=== PATIENT | male | born 1960 | race Two or more races ===

== ENCOUNTER 2020-07-22 09:32 | Outpatient (REF) | payer BC, SELFPAY | END 2020-07-22 09:33 | disposition home or self-care (01) | LOC: HO.10HDL 09:32 | PROVIDERS: Visit Provider Internal Medicine | DX: Z13.89 Encounter for screening for other disorder (principal) ==

== ENCOUNTER 2020-07-24 10:13 | Outpatient (REF) | payer BC, SELFPAY ==
[2020-07-24 13:32] LABS: MANUAL DIFF FLAG NO
[2020-07-24 13:38] LABS: Basophils Percent Auto 0.4 % (0-2); Eosinophils Absolute Auto 0.2 X10*3/uL (0.0-0.4); Eosinophils Percent Auto 2.9 % (0-4); Hematocrit 44.5 % (42-52); Hemoglobin 14.9 g/dl (14.0-18.0); Imm Gran Abs Auto 0.03 X10*3/uL (0.00-0.03); Imm Gran Pct Auto 0.4 % (0.0-0.4); Lymphocytes Absolute Auto 1.8 X10*3/uL (1.2-4.9); Lymphocytes Percent Auto 25.5 % (20-40); Mean Corpuscular HGB Conc 33.5 g/dl (31.0-36.0); Mean Corpuscular Hemoglobin 32.6 pg (27.0-33.0); Mean Corpuscular Volume 97.4 fL (80-98); Mean Platelet Volume 10.1 fL (9.4-12.4); Monocytes Percent Auto 14.8 % (2-11); Neutrophils Absolute Auto 3.9 X10*3/uL (2.0-8.3); Platelet Count 215 X10*3/uL (160-400); Red Blood Count 4.57 X10*6/uL (4.60-5.80); Red Cell Distribution Width 12.7 % (11.0-16.0); White Blood Count 6.9 X10*3/uL (4.8-10.8)
[2020-07-24 14:09] LABS: Alanine Aminotransferase 65 U/L (0-40); Albumin Level 4.3 g/dL (3.5-5.0); Alkaline Phosphatase 68 U/L (39-117); Anion Gap 13 (12-20); Aspartate Amino Transferase 38 U/L (5-37); Bilirubin Total 0.4 mg/dL (0.0-1.0); Blood Urea Nitrogen 19 mg/dL (9-16); Calcium 8.6 mg/dL (8.4-10.2); Carbon Dioxide 29 mmol/L (22-29); Chloride 102 mmol/L (96-108); Cholesterol 172 mg/dL; Estimated Glomerular Filt Rate > 60; Glucose Fasting 164 mg/dL (60-99); HDL Cholesterol 40 mg/dL; LDL Cholesterol Calculated 96 mg/dl; Potassium 4.7 mmol/l (3.3-5.1); Sodium 139 mmol/L (135-145); Total Protein 7.1 g/dL (6.5-8.0); Triglycerides 183 mg/dL
== END 2020-07-24 10:14 | disposition home or self-care (01) ==
LOC: HO.10HDL 10:13
PROVIDERS: Visit Provider Internal Medicine
DX: E78.5 Hyperlipidemia, unspecified (principal); E11.9 Type 2 diabetes mellitus without complications
CPT/HCPCS: 36415; 80053; 80061; 84153; 85025

== ENCOUNTER 2022-02-16 07:57 | Outpatient (REF) | payer BC, SELFPAY ==
[2022-02-16 10:22] LABS: MANUAL DIFF FLAG NO
[2022-02-16 10:25] LABS: Basophils Percent Auto 0.4 % (0-2); Eosinophils Absolute Auto 0.1 X10*3/uL (0.0-0.4); Eosinophils Percent Auto 1.6 % (0-4); Hemoglobin 15.4 g/dl (14.0-18.0); Imm Gran Abs Auto 0.02 X10*3/uL (0.00-0.03); Imm Gran Pct Auto 0.3 % (0.0-0.4); Lymphocytes Absolute Auto 2.2 X10*3/uL (1.2-4.9); Lymphocytes Percent Auto 29.4 % (20-40); Mean Corpuscular HGB Conc 34.2 g/dl (31.0-36.0); Mean Corpuscular Hemoglobin 31.3 pg (27.0-33.0); Mean Corpuscular Volume 91.5 fL (80.0-98.0); Mean Platelet Volume 10.5 fL (9.4-12.4); Monocytes Absolute Auto 0.9 X10*3/uL (0.1-1.2); Monocytes Percent Auto 11.8 % (2-11); Neutrophils Absolute Auto 4.2 x10*3/uL (2.0-8.3); Neutrophils Percent Auto 56.5 % (45-73); Platelet Count 208 X10*3/uL (160-400); Red Blood Count 4.92 X10*6/uL (4.60-5.80); Red Cell Distribution Width 12.2 % (11.0-16.0); White Blood Count 7.5 X10*3/uL (4.8-10.8)
[2022-02-16 10:52] LABS: Alanine Aminotransferase 54 U/L (0-40); Albumin Level 4.3 g/dL (3.5-5.0); Alkaline Phosphatase 82 U/L (39-117); Anion Gap 13 (12-20); Aspartate Amino Transferase 26 U/L (5-37); Bilirubin Total 0.6 mg/dL (0.0-1.0); Blood Urea Nitrogen 16 mg/dL (9-16); Calcium 9.8 mg/dL (8.4-10.2); Carbon Dioxide 28 mmol/L (22-29); Chloride 99 mmol/L (96-108); Cholesterol 172 mg/dL; Estimated Glomerular Filt Rate > 60; Glucose Fasting 322 mg/dL (60-99); HDL Cholesterol 35 mg/dL; LDL Cholesterol Calculated 99 mg/dl; Potassium 4.8 mmol/L (3.3-5.1); Sodium 135 mmol/L (135-145); Total Protein 7.4 g/dL (6.5-8.0); Triglycerides 192 mg/dL
[2022-02-16 11:17] LABS: Prostate Specific Antigen Scr 0.37 ng/mL (<0.05-4.0)
== END 2022-02-16 07:58 | disposition home or self-care (01) ==
LOC: HO.10HDL 07:57
PROVIDERS: Visit Provider Internal Medicine
DX: Z00.00 Encounter for general adult medical examination without abnormal findings (principal); Z13.0 Encounter for screening for diseases of the blood and blood-forming organs and certain disorders involving the immune mechanism; Z12.5 Encounter for screening for malignant neoplasm of prostate
CPT/HCPCS: 36415; 80053; 80061; 84153; 85025

== ENCOUNTER 2022-02-18 11:00 | Outpatient (REF) | payer BC, SELFPAY ==
[2022-02-18 14:02] LABS: Estimated Average Glucose 269 mg/dL
[2022-02-18 14:25] LABS: Creatinine Urine 47.29 mg/dL; Microalbum/Creatinine Ratio Ur 14.8 ug/mg cr
== END 2022-02-18 11:01 | disposition home or self-care (01) ==
LOC: HO.10HDL 11:00
PROVIDERS: Visit Provider Internal Medicine
DX: E11.69 Type 2 diabetes mellitus with other specified complication (principal); E66.01 Morbid (severe) obesity due to excess calories
CPT/HCPCS: 36415; 82043; 83036

== ENCOUNTER 2022-05-25 09:18 | Outpatient (REF) | payer BC, SELFPAY ==
[2022-05-25 11:39] LABS: Estimated Average Glucose 105 mg/dL; Hemoglobin A1c % 5.3 %
== END 2022-05-25 09:19 | disposition home or self-care (01) ==
LOC: HO.10HDL 09:18
PROVIDERS: Visit Provider Internal Medicine
DX: E11.9 Type 2 diabetes mellitus without complications (principal)
CPT/HCPCS: 36415; 83036

== ENCOUNTER 2022-06-08 09:08 | Outpatient (REF) | payer BC, SELFPAY ==
[2022-06-08 11:17] LABS: Glucose Fasting 77 mg/dL (60-99)
== END 2022-06-08 09:09 | disposition home or self-care (01) ==
LOC: HO.10HDL 09:08
PROVIDERS: Visit Provider Internal Medicine
DX: R73.9 Hyperglycemia, unspecified (principal)
CPT/HCPCS: 36415; 82947

== ENCOUNTER 2022-09-14 09:27 | Outpatient (REF) | payer BC, SELFPAY ==
[2022-09-14 11:11] LABS: Estimated Average Glucose 103 mg/dL; Hemoglobin A1c % 5.2 %
[2022-09-14 11:17] LABS: Glucose Fasting 95 mg/dL (60-99)
== END 2022-09-14 09:28 | disposition home or self-care (01) ==
LOC: HO.10HDL 09:27
PROVIDERS: Visit Provider Internal Medicine
DX: E11.65 Type 2 diabetes mellitus with hyperglycemia (principal)
CPT/HCPCS: 36415; 82947; 83036

== ENCOUNTER 2022-12-08 11:24 | Outpatient (REF) | payer BC, SELFPAY ==
[2022-12-08 13:27] LABS: Glucose Fasting 81 mg/dL (60-99)
[2022-12-08 14:21] LABS: Estimated Average Glucose 100 mg/dL; Hemoglobin A1c % 5.1 %
[2022-12-13 13:23] LABS: Testosterone, Free 46.1 pg/mL (35.0-155.0); Testosterone, Total 408 ng/dL (250-1100)
== END 2022-12-08 11:25 | disposition home or self-care (01) ==
LOC: HO.10HDL 11:24
PROVIDERS: Visit Provider Internal Medicine
DX: E11.65 Type 2 diabetes mellitus with hyperglycemia (principal); R53.83 Other fatigue
CPT/HCPCS: 36415; 82947; 83036; 84402; 84403

== ENCOUNTER 2023-03-15 07:57 | Outpatient (REF) | payer BC, SELFPAY ==
[2023-03-15 10:27] LABS: MANUAL DIFF FLAG NO
[2023-03-15 10:31] LABS: Basophils Percent Auto 0.6 % (0-2); Eosinophils Absolute Auto 0.2 X10*3/uL (0.0-0.4); Hematocrit 42.6 % (42.0-52.0); Hemoglobin 14.5 g/dl (14.0-18.0); Imm Gran Abs Auto 0.01 X10*3/uL (0.00-0.03); Imm Gran Pct Auto 0.2 % (0.0-0.4); Lymphocytes Absolute Auto 1.5 X10*3/uL (1.2-4.9); Mean Platelet Volume 10.3 fL (9.4-12.4); Monocytes Absolute Auto 0.6 X10*3/uL (0.1-1.2); Neutrophils Absolute Auto 2.8 x10*3/uL (2.0-8.3); Neutrophils Percent Auto 54.2 % (45-73); Platelet Count 178 X10*3/uL (160-400); Red Blood Count 4.53 X10*6/uL (4.60-5.80); Red Cell Distribution Width 13.4 % (11.0-16.0); White Blood Count 5.2 X10*3/uL (4.8-10.8)
[2023-03-15 10:51] LABS: Alanine Aminotransferase 18 U/L (0-40); Albumin Level 4.3 g/dL (3.5-5.0); Alkaline Phosphatase 68 U/L (39-117); Anion Gap 12 (12-20); Aspartate Amino Transferase 18 U/L (5-37); Bilirubin Total 0.9 mg/dL (0.0-1.0); Blood Urea Nitrogen 13 mg/dL (9-16); Calcium 9.9 mg/dL (8.4-10.2); Carbon Dioxide 29 mmol/L (22-29); Chloride 108 mmol/L (96-108); Cholesterol 157 mg/dL; Estimated Average Glucose 97 mg/dL; Estimated Glomerular Filt Rate > 60; Glucose Fasting 102 mg/dL (60-99); HDL Cholesterol 52 mg/dL; Hemoglobin A1C 121.2812 umol/L; LDL Cholesterol Calculated 91 mg/dl; Potassium 4.7 mmol/L (3.3-5.1); Sodium 144 mmol/L (135-145); Total Protein 7.1 g/dL (6.5-8.0); Triglycerides 73 mg/dL
[2023-03-15 11:03] LABS: Creatinine Urine 72.42 mg/dL; Microalbumin Urine < 5.0 mg/L
== END 2023-03-15 07:58 | disposition home or self-care (01) ==
LOC: HO.10HDL 07:57
PROVIDERS: Visit Provider Internal Medicine
DX: N28.9 Disorder of kidney and ureter, unspecified (principal); E78.5 Hyperlipidemia, unspecified; E03.9 Hypothyroidism, unspecified; D64.9 Anemia, unspecified; E11.69 Type 2 diabetes mellitus with other specified complication; E66.01 Morbid (severe) obesity due to excess calories; E11.65 Type 2 diabetes mellitus with hyperglycemia
CPT/HCPCS: 36415; 80053; 80061; 82043; 83036; 84443; 85025

== ENCOUNTER 2024-05-01 10:38 | Outpatient (REF) | payer BC, SELFPAY ==
[2024-05-01 12:02] LABS: Glucose Fasting 103 mg/dL (60-99)
[2024-05-01 12:34] LABS: Estimated Average Glucose 103 mg/dL; Hemoglobin A1c % 5.2 % (<6.0)
== END 2024-05-01 10:39 | disposition home or self-care (01) ==
LOC: HO.10HDL 10:38
PROVIDERS: Visit Provider Internal Medicine
DX: R73.9 Hyperglycemia, unspecified (principal)
CPT/HCPCS: 36415; 82947; 83036

== ENCOUNTER 2024-05-03 09:14 | Outpatient (REF) | payer MEDICARE, SELFPAY ==
[2024-05-03 11:03] LABS: MANUAL DIFF FLAG NO
[2024-05-03 11:25] LABS: Basophils Percent Auto 0.4 % (0-2); Eosinophils Absolute Auto 0.1 X10*3/uL (0.0-0.4); Eosinophils Percent Auto 1.6 % (0-4); Hematocrit 43.2 % (42.0-52.0); Hemoglobin 14.8 g/dl (14.0-18.0); Imm Gran Abs Auto 0.02 X10*3/uL (0.00-0.03); Imm Gran Pct Auto 0.4 % (0.0-0.4); Lymphocytes Absolute Auto 1.5 X10*3/uL (1.2-4.9); Lymphocytes Percent Auto 27.1 % (20-40); Mean Corpuscular HGB Conc 34.3 g/dl (31.0-36.0); Mean Corpuscular Hemoglobin 31.8 pg (27.0-33.0); Mean Corpuscular Volume 92.9 fL (80.0-98.0); Mean Platelet Volume 9.6 fL (9.4-12.4); Monocytes Absolute Auto 0.7 X10*3/uL (0.1-1.2); Monocytes Percent Auto 12.1 % (2-11); Neutrophils Absolute Auto 3.3 x10*3/uL (2.0-8.3); Neutrophils Percent Auto 58.4 % (45-73); Platelet Count 191 X10*3/uL (160-400); Red Blood Count 4.65 X10*6/uL (4.60-5.80); Red Cell Distribution Width 12.7 % (11.0-16.0); White Blood Count 5.6 X10*3/uL (4.8-10.8)
[2024-05-03 11:31] LABS: Alanine Aminotransferase 19 U/L (0-40); Albumin Level 4.5 g/dL (3.5-5.0); Alkaline Phosphatase 56 U/L (39-117); Anion Gap 12 (12-20); Aspartate Amino Transferase 19 U/L (5-37); Bilirubin Total 0.5 mg/dL (0.0-1.0); Blood Urea Nitrogen 14 mg/dL (9-16); Calcium 9.6 mg/dL (8.4-10.2); Carbon Dioxide 30 mmol/L (22-29); Chloride 105 mmol/L (96-108); Cholesterol 141 mg/dL (<200); Estimated Glomerular Filt Rate > 60; Glucose Fasting 105 mg/dL (60-99); HDL Cholesterol 44 mg/dL (>40); LDL Cholesterol Calculated 80 mg/dL (<100); Potassium 4.5 mmol/L (3.3-5.1); Sodium 142 mmol/L (135-145); Total Protein 7.4 g/dL (6.5-8.0); Triglycerides 89 mg/dL (<150)
[2024-05-03 11:34] LABS: Estimated Average Glucose 103 mg/dL; Hemoglobin A1c % 5.2 % (<6.0)
[2024-05-03 11:48] LABS: Microalbum/Creatinine Ratio Ur 9.7 ug/mg cr (<30)
[2024-05-03 11:49] LABS: Thyroid Stimulating Hormone 1.29 uIU/mL (0.32-4.0)
== END 2024-05-03 09:15 | disposition home or self-care (01) ==
LOC: HO.10HDL 09:14
PROVIDERS: Visit Provider Internal Medicine
DX: Z13.9 Encounter for screening, unspecified (principal); E11.69 Type 2 diabetes mellitus with other specified complication; E66.01 Morbid (severe) obesity due to excess calories; R73.9 Hyperglycemia, unspecified; Z13.220 Encounter for screening for lipoid disorders; Z13.29 Encounter for screening for other suspected endocrine disorder; Z13.0 Encounter for screening for diseases of the blood and blood-forming organs and certain disorders involving the immune mechanism
CPT/HCPCS: 36415; 80053; 80061; 82043; 82570; 83036; 84443; 85025

== ENCOUNTER 2024-05-04 10:36 | Outpatient (AMB) | payer MEDICARE, SELFPAY ==
--- NOTE | 2024-05-04 10:33 | A.OFFPC_ITS ---
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3% 1 drp ophthalmic (eye) Q4H triamcinolone acetonide 0.1% appl topical zolpidem 10 mg PO BEDTIME PRN 30 days Tobacco use date assessed: 03/16/23 Dental Screening Dental Screen Date: 03/16/23 HPI possible pink eye HPI Details both eyes red and crusty for a few days PFSH Medical History (Updated 06/09/22 @ 15:07 by Maicol Mayorga MD) Hyperlipidemia Gout Surgical History History of herniorrhaphy History of spinal fusion Family History Father Alive and well Mother No problems noted. Brother Hodgkin disease Sister Lupus Other Substance use disorder Social History Housing: Apartment Alcohol intake: current Alcohol intake frequency: a few times a week Alcohol type: wine Patient Tobacco Use Status: Never used Tobacco e-Cigarette/Vaping Use: Never Used Second Hand Smoke Exposure: No service: No Current occupational status: employed Current occupation: [employer] Current occupational exposures/hazards: No Cognitive needs: No Hearing needs: No Vision needs: Yes (glasses) Questionnaire PHQ-9 Over the last 2 weeks, how often have you been bothered by any of the following problems? 1. Little interest or pleasure in doing things: not at all 2. Feeling down, depressed, or hopeless: not at all 3. Trouble falling or staying asleep, or sleeping too much: not at all 4. Feeling tired or having little energy: not at all 5. Poor appetite or overeating: not at all 6. Feeling bad about yourself - or that you are a failure or have let yourself or your family down: not at all 7. Trouble concentrating on things, such as reading the newspaper or watching television: not at all 8. Moving or speaking so slowly that other people could have noticed. Or the opposite - being so fidgety or restless that you have been moving around a lot more than usual: not at all 9. Thoughts that you would be better off or of hurting yourself in some way: not at all Total score: 0 Depression Screening Interpretation: Negative Depression Screening Done: Yes 98143 - PHQ-9 Billing: Yes Source: Developed by Drs. Leighton Stone, Tricia Howell, Kane Diamond and colleagues, with an educational musa from [employer]. Thrive Questionnaire Date Thrive assessed: 05/04/24 I am a: Patient What is your living situation today?: I have a steady place to live Within the past 12 months, did the food you bought not last and you didn't have the money to get more?: Never true Within the past 12 months, did you worry whether your food would run out before you got money to buy more?: Never true Do you have trouble paying for medicines?: No Do you have trouble getting transportation to medical appointments?: No Do you have trouble paying your heating and electricity bill?: No Do you have trouble taking care of your child, family member or friend?: No Do you have trouble with day-to-day activities such as bathing, preparing meals, shopping, managing finances, etc.?: No Are you currently unemployed and looking for a job?: No Are you interested in more education?: No Please select the resources that you would like help with: None Currently or been in a relationship where the following occur: No concerns reported THRIVE Score: 0 AUDIT C Alcohol Use Questionnaire (AUDIT-C) 1. How often do you have a drink containing alcohol?: 2-3 times a week 2. How many drinks containing alcohol do you have on a typical day when you are drinking?: 3 or 4 3. How often do you have six or more drinks on one occasion?: Never Total Score: 4 Score Reviewed/Action Taken: Yes VAN-7 AMB Questionnaire VAN-7 Date VAN - 7 assessed: 05/04/24 Feeling nervous, anxious, or on edge: 0 = Not at all Not being able to stop or control worryin = Not at all Worrying too much about different things: 0 = Not at all Trouble relaxin = Not at all Being so restless that it is hard to sit still: 0 = Not at all Becoming easily annoyed or irritable: 0 = Not at all Feeling afraid as if something awful might happen: 0 = Not at all Total VAN-7 score (0-4 normal; 5-9 mild; 10-14 moderate; 15-21 severe): 0 Source: Developed by Drs. Leighton Stone, Tricia Howell, Kane Diamond and colleagues, with an educational musa from [employer]. VAN-7 Assessment Billing VAN-7 Assessment Tool: VAN-7 Assessment 43145 Review of Systems Const Denies chills, Denies headache(s) and Denies weight loss ENT Denies headache(s) Card Denies chest pain, Denies syncope, Denies irregular heart rhythm and Denies dyspnea Resp Denies chest congestion, Denies cough and Denies dyspnea GI Denies abdominal pain, Denies change in stool character, Denies nausea and Denies vomiting Musc Denies deformity and Denies joint swelling Neuro Denies syncope and Denies headache(s) Physical exam (Primary Care) Tobacco/Smoking Status: Tobacco use Status Tobacco use date assessed 03/16/23 05/04/24 10:36 Patient Tobacco Use Status Never used Tobacco 05/04/24 10:36 e-Cigarette/Vaping Use Never Used 05/04/24 10:36 PHQ-9: PHQ-9 Score PHQ-9: Total score 0 05/04/24 10:36 Depression Screening Interpretation: Negative Thrive Assessment: Date of Thrive Assessment Date Thrive assessed 05/04/24 05/04/24 10:36 Currently or been in a relationship where the following occur: No concerns reported Telehealth Telehealth Telehealth Platform: Telephone Location of provider rendering services: practice address Location of patient: address on file Patient Identification confirmed using: Name, : Yes Telehealth method: video Patient verbally consented to treatment: Yes Patient verbally consented to billing insurance company: Yes Patient informed of any privacy concerns related to visit: Yes Minutes spent on Phone/Video with Pt.: 15 (telephone) Assessment and Plan Assessment & Plan (1) Conjunctivitis: Code(s): H10.9 - Unspecified conjunctivitis Plan: rx sent Medications: New tobramycin 0.3% 1 drp ophthalmic (eye) Q4H 5 mL 0RF Coding Level of Care Code Tele Est Pt Level 3 (99485) Diagnoses Conjunctivitis H10.9 Additional Codes VAN-7 Assessment Billing - VAN-7 Assessment Tool: VAN-7 Assessment 19811 ([id number])
== END 2024-05-04 13:52 | disposition home or self-care (01) ==
LOC: HO.HMGH 10:36
PROVIDERS: PCP Internal Medicine; Visit Provider Internal Medicine
DX: H10.9 Unspecified conjunctivitis (principal)
CPT/HCPCS: 99213

== ENCOUNTER 2024-05-08 13:10 | Outpatient (AMB) | payer MEDICARE, SELFPAY ==
[2024-05-08 13:15] VITALS: BP 138/68; PULSE 57; O2SAT 98; BMI 25.6
--- NOTE | 2024-05-08 13:15 | AM.OFFVISMDC ---
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 Brother Hodgkin disease Sister Lupus Other Substance use disorder Social History Housing: Apartment Alcohol intake: current Alcohol intake frequency: a few times a week Alcohol type: wine Patient Tobacco Use Status: Never used Tobacco e-Cigarette/Vaping Use: Never Used Second Hand Smoke Exposure: No service: No Current occupational status: employed Current occupation: [employer] Current occupational exposures/hazards: No Cognitive needs: No Hearing needs: No Vision needs: Yes (glasses) Questionnaire Medicare Wellness Checkup [age] 65-67 What gender do you identify with?: male During the past 4 weeks, how much have you been bothered by emotional problems such as feeling anxious, depressed, irritable, sad or downhearted, and blue?: slightly During the past 4 weeks, has your physical & emotional health limited your social activities with family, friends, neighbors, or groups?: slightly During the past 4 weeks, how much bodily pain have you generally had?: mild pain During the past 4 weeks, was someone available to help you if you needed & wanted help?: yes, some During the past 4 weeks, what was the hardest physical activity you could do for at least 2 minutes?: moderate Can you get to places out of walking distance without help? (For eg., can you travel alone on buses, taxis or drive your car?): Yes Can you go shopping for groceries or clothes without someone's help?: Yes Can you prepare your own meals?: Yes Can you do your housework without help?: Yes Because of any health problems, do you need the help of another person with your personal care needs such as eating, bathing, dressing or getting around the house?: No Can you handle your own money without help?: Yes During the past 4 weeks, how would you rate your health in general?: good During the past 4 weeks how have things been going for you?: pretty well Are you having difficulties driving your car?: no Do you always fasten your seat belt when you are in a car?: yes, usually During past 4 weeks, have you been bothered by the following: seldom: Falling or dizzy when standing up and Problems using the telephone?, sometimes: Trouble eating well? and Teeth or denture problems? and often: Sexual problems? and Tiredness or fatigue? Have you fallen 2 or more times in the past year?: No Are you afraid of falling?: Yes Are you a smoker?: no During the past 4 weeks, how many drinks of wine, beer, or other alcoholic beverages did you have?: 2-5 drinks per week Do you exercise for about 20 minutes 3 or more times a week?: yes, some of the time Have you been given information to help with the following?: yes: Hazards in your house that might hurt you? and yes: Keeping track of your medications? How often do you have trouble taking medicines the way you have been told to take them?: I always take medicine as prescribed How confident are you that you can control & manage most of your health problems?: somewhat confident What is your race?: Other PHQ-9 Over the last 2 weeks, how often have you been bothered by any of the following problems? 1. Little interest or pleasure in doing things: several days 2. Feeling down, depressed, or hopeless: several days 3. Trouble falling or staying asleep, or sleeping too much: several days 4. Feeling tired or having little energy: several days 5. Poor appetite or overeating: several days 6. Feeling bad about yourself - or that you are a failure or have let yourself or your family down: several days 7. Trouble concentrating on things, such as reading the newspaper or watching television: several days 8. Moving or speaking so slowly that other people could have noticed. Or the opposite - being so fidgety or restless that you have been moving around a lot more than usual: several days 9. Thoughts that you would be better off or of hurting yourself in some way: not at all Total score: 8 Depression Screening Interpretation: Negative Depression Screening Done: Yes 64755 - PHQ-9 Billing: Yes Source: Developed by Drs. Leighton Stone, Tricia Howell, Kane Diamond and colleagues, with an educational musa from [employer]. Thrive Questionnaire Date Thrive assessed: 05/04/24 VAN-7 AMB Questionnaire VAN-7 Date VAN - 7 assessed: 05/04/24 Source: Developed by Drs. Leighton Stone, Tricia Howell, Kane Diamond and colleagues, with an educational musa from [employer]. Review of Systems Const Denies chills, Denies fatigue, Denies headache(s) and Denies weight loss Eyes Denies change in vision, Denies diplopia and Denies eye pain ENT Denies vertigo, Denies dizziness, Denies headache(s) and Denies nasal discharge Card Denies chest pain, Denies rapid heart rate and Denies dyspnea on exertion Resp Denies chest congestion, Denies cough, Denies pain with cough and Denies dyspnea on exertion GI Denies abdominal pain, Denies hematochezia and Denies change in bowel habits Musc Denies myalgias, Denies arthralgias and Denies joint swelling Skin/Breast Denies lesions and Denies unusual bruising Neuro Denies vertigo, Denies dizziness, Denies headache(s) and Denies focal weakness Endo Denies fatigue Physical Exam Vital Signs: Last Vital Signs Pulse 57 05/08/24 13:15 BP 138/68 05/08/24 13:15 Pulse Ox 98 05/08/24 13:15 Oxygen Delivery Method Room Air 05/08/24 13:15 BMI result Body Mass Index 25.6 Const General: cooperative, healthy appearing and no acute distress Orientation/consciousness: oriented to person, oriented to place and oriented to time HEENT Head: Yes normal to inspection, Yes normocephalic and Yes atraumatic Mouth: Normal oral and palatal mucosa present and tongue normal Throat: Yes posterior oropharynx normal and Yes uvula midline Eyes General: appearance normal, both eyes and all related structures Neck Neck: Yes normal visual inspection, Yes full ROM and Yes no lymphadenopathy Thyroid: Thyroid normal Carotids: normal carotid upstroke Chest Chest palpation & inspection: normal inspection of the chest Resp Effort & Inspection: normal respiratory effort and able to speak in complete sentences Auscultation: clear to auscultation bilaterally Cardio Jugular venous distension: no JVD Palpation: normal PMI Rate: regular rate Rhythm: regular rhythm Heart sounds: S1 normal heart sound present and S2 normal heart sound present GI Inspection: Yes normal to inspection Palpation (GI): Soft to palpation and No hepatosplenomegaly present Auscultation: normal bowel sounds General: Yes no CVA tenderness Back/Spine/Pelvis Back: no CVA tenderness Skin General skin exam: no rashes or lesions noted Neuro General: oriented to person, oriented to place and oriented to time Extrem General: Yes normal to inspection and Yes full ROM Assessment & Plan Assessment & Plan (1) Physical exam: Code(s): Z00.00 - Encounter for general adult medical examination without abnormal findings Plan: stable; do labs (2) Hyperlipidemia: Code(s): E78.5 - Hyperlipidemia, unspecified Plan: stable; same rx (3) Type 2 diabetes mellitus with hyperlipidemia: Code(s): E11.69 - Type 2 diabetes mellitus with other specified complication; E78.5 - Hyperlipidemia, unspecified Plan: stable; same rx Quality Reporting (2019) Depression/Bipolar (159/160/161/177) PHQ-9: Total score: 8 Coding Level of Care Code Established Pt Est Pt Level 5 (79408) Patient Type Established History Comprehensive Exam Comprehensive Diagnoses Physical exam Z00.00 Hyperlipidemia E78.5 Type 2 diabetes mellitus with hyperlipidemia E11.69; E78.5
== END 2024-05-08 14:16 | disposition home or self-care (01) ==
PROVIDERS: PCP Internal Medicine; Visit Provider Internal Medicine
DX: Z00.00 Encounter for general adult medical examination without abnormal findings (principal); E78.5 Hyperlipidemia, unspecified; E11.69 Type 2 diabetes mellitus with other specified complication
CPT/HCPCS: 99214

== ENCOUNTER 2025-01-22 08:48 | Outpatient (REF) | payer MEDICARE, SELFPAY ==
--- OUTSIDE RECORDS SUMMARY | 2025-01-22 09:22 | XMS_ITS | Continuity of Care Document ---
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 Onset: Hyperlipidemia Cole Waddell M.D. Onset: Type 2 diabetes mellitus Cole Waddell M.D. O nset: 07/20/2022 Family history of Hodgkin's disease Cole ybarra M.D. Onset: 07/20/2022 Difficulty sleeping Cole Waddell M.D. Onset: 07/20/2022 Osteoarthritis Cole Waddell M.D. Onset: Social History Type Date Description Comments Sex Unknown Tobacco Use Start: Unknown Never Smoked Cigarettes ETOH Use Occasionally consumes wine Allergies and adverse reactions Active Allergies Criticality Reaction Severity Comments Date Cefazolin Unable to assess criticality 07/20/2022 Latex Unable to assess criticality 07/20/2022 Neostigmine Unable to assess criticality 07/20/2022 Medications Active Medications SIG Qnty Indications Ordering Provider Date Zolpidem [id number] Tablets Take 1 Tablet By Mouth AT Bedtime as Needed For Insomnia Maicol Mayorga [id number] Tablets Take 1 Tablet By Mouth Three Times A Day as Needed For Anxiety Maicol Mayorga Hydroxyzine AOZ89ti Tablets Take 1 Tablet By Mouth Three Times Daily as Needed For Itching Unknown Metformin [id number] Tablets 1 by mouth every day pm Maicol Mayorga [id number] Tablets Take 1 Tablet By Mouth Daily Maicol Mayorga [id number] Tablets Take 1 Tablet By Mouth Every Day Maicol Mayorga Vital Signs Date Vital Result Comment 07/20/2022 1:44pm BP Systolic 118 mmHg BP Diastolic 68 mmHg Height 72 inches 6'0 Weight 186.00 lb BMI (Body Mass Index) 25.2 kg/m2 Results Test Acquired Date Facility Test Result H/L Range N ote Glucose Fingerstick 07/20/2022 Inhouse Glucose Fingerstick 101 Medical Devices Description No Information Available Encounters Type Date Location Provider Dx Diagnosis Office Visit 07/20/2022 1:45p Main Office Cole Waddell M.D. E11.9 Type 2 diabetes mellitus without complications M19.90 Unspecified osteoart hritis, unspecified site Z87.39 Personal history of diseases of the ms sys and conn tiss Z72.820 Sleep deprivation Z80.7 Fam hx of malig neop lm of lymphoid, hematpoetc and rel tiss Assessments Date Code Description Provider 07/20/2022 E11.9 Type 2 diabetes mellitus without complications Cole Waddell M.D. 07/20/2022 M19.90 Osteoarthritis Cole gutierrez M.D. 07/20/2022 Z87.39 H/O: gout Cole Waddell M.D. 07/20/2022 Z72.820 Difficulty sleeping Cole espana M.D. 07/20/2022 Z80.7 Family history of Hodgkin's disease Cole Waddell M.D. Plan of Treatment No Information Available Functional Status Description No Information Available Mental Status Description No Information Available Referrals Refer to Reason for Referral Status Appt Cole Gonzalez M.D. Created [address] [place] [address] Drive [address] [place] [address] [phone]
[2025-01-22 09:52] LABS: MANUAL DIFF FLAG NO
[2025-01-22 10:00] LABS: Basophils Percent Auto 0.4 % (0-2); Eosinophils Absolute Auto 0.1 X10*3/uL (0.0-0.4); Eosinophils Percent Auto 1.5 % (0-4); Hematocrit 43.4 % (42.0-52.0); Imm Gran Abs Auto 0.02 X10*3/uL (0.00-0.03); Imm Gran Pct Auto 0.3 % (0.0-0.4); Lymphocytes Absolute Auto 1.6 X10*3/uL (1.2-4.9); Mean Corpuscular HGB Conc 34.6 g/dl (31.0-36.0); Mean Corpuscular Hemoglobin 31.9 pg (27.0-33.0); Mean Corpuscular Volume 92.3 fL (80.0-98.0); Mean Platelet Volume 9.3 fL (9.4-12.4); Monocytes Absolute Auto 0.7 X10*3/uL (0.1-1.2); Monocytes Percent Auto 10.8 % (2-11); Neutrophils Absolute Auto 4.4 x10*3/uL (2.0-8.3); Platelet Count 207 X10*3/uL (160-400); Red Cell Distribution Width 12.9 % (11.0-16.0); White Blood Count 6.9 X10*3/uL (4.8-10.8)
[2025-01-22 10:06] LABS: Estimated Average Glucose 108 mg/dL; Hemoglobin A1C 138.0163 umol/L; Hemoglobin A1c % 5.4 % (<6.0); Total Hemoglobin (HGBA1C) 3925.1243 umol/L
[2025-01-22 10:20] LABS: Alanine Aminotransferase 29 U/L (0-40); Albumin Level 4.5 g/dL (3.5-5.0); Alkaline Phosphatase 47 U/L (39-117); Anion Gap 12 (12-20); Aspartate Amino Transferase 26 U/L (5-37); Bilirubin Total 0.7 mg/dL (0.0-1.0); Blood Urea Nitrogen 14 mg/dL (9-16); Calcium 9.9 mg/dL (8.4-10.2); Carbon Dioxide 30 mmol/L (22-29); Chloride 104 mmol/L (96-108); Cholesterol 172 mg/dL (<200); Estimated Glomerular Filt Rate > 60; Glucose Fasting 86 mg/dL (60-99); HDL Cholesterol 51 mg/dL (>40); LDL Cholesterol Calculated 103 mg/dL (<100); Potassium 4.8 mmol/L (3.3-5.1); Sodium 141 mmol/L (135-145); Total Protein 7.1 g/dL (6.5-8.0); Triglycerides 94 mg/dL (<150); Uric Acid 5.2 mg/dL (3.4-7.0)
[2025-01-22 10:24] LABS: TSH reflex Free T4 1.66 uIU/mL (0.32-4.0); Vitamin D 25-OH Total 40.3 ng/mL (>30)
[2025-01-22 11:18] LABS: Folate 9.7 ng/mL (> or = 4.0); Vitamin B12 512 pg/mL (200-900)
== END 2025-01-22 08:49 | disposition home or self-care (01) ==
LOC: HO.10HDL 08:48
PROVIDERS: Visit Provider Internal Medicine
DX: E11.9 Type 2 diabetes mellitus without complications (principal); E78.2 Mixed hyperlipidemia; M10.00 Idiopathic gout, unspecified site; G47.00 Insomnia, unspecified; F41.9 Anxiety disorder, unspecified; E66.3 Overweight; Z79.84 Long term (current) use of oral hypoglycemic drugs; Z79.899 Other long term (current) drug therapy; E78.00 Pure hypercholesterolemia, unspecified; D64.9 Anemia, unspecified; E55.9 Vitamin D deficiency, unspecified; E53.8 Deficiency of other specified B group vitamins
CPT/HCPCS: 36415; 80053; 80061; 82306; 82607; 82746; 83036; 84443; 84550; 85025; 96127; 99212

== ENCOUNTER 2025-01-22 14:20 | Outpatient (AMB) | payer MEDICARE, SELFPAY ==
[2025-01-22 14:28] VITALS: BP 120/84; PULSE 60; O2SAT 96; BMI 26.2
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
--- OUTSIDE RECORDS SUMMARY | 2025-01-22 17:07 | XMS_ITS | Continuity of Care Document ---
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 + [phone] Problems Active Problems Provider Date H/O: gout [...] SIG Qnty Indications Ordering Provider Date Zolpidem [id number] Tablets Take 1 Tablet By Mouth AT Bedtime as Needed For Insomnia Maicol Mayorga Ykyrtxlezg9da Tablets Take 1 Tablet By Mouth Three Times A Day as Needed For Anxiety Maicol Mayorga Hydroxyzine HLN32bt Tablets Take 1 Tablet By Mouth Three Times Daily as Needed For Itching Unknown Metformin [id number] Tablets 1 by mouth every day pm Maicol Mayorga [id number] Tablets Take 1 Tablet By Mouth Daily Maicol Mayorga Snhvmeokczw11ra Tablets Take 1 Tablet By Mouth Every [...] Referral Status Appt Cole Gonzalez M.D. Created [address] [place] [address] Drive [address] [place] [address] [phone]
== END 2025-01-22 15:21 | disposition home or self-care (01) ==
LOC: HO.HMCH 14:21
PROVIDERS: PCP Internal Medicine; Visit Provider Internal Medicine
DX: E11.9 Type 2 diabetes mellitus without complications (principal); E78.2 Mixed hyperlipidemia; M10.00 Idiopathic gout, unspecified site; G47.00 Insomnia, unspecified; F41.9 Anxiety disorder, unspecified; E66.3 Overweight

== ENCOUNTER 2025-07-02 08:55 | Outpatient (REF) | payer MEDICARE, SELFPAY ==
--- OUTSIDE RECORDS SUMMARY | 2025-07-02 09:52 | XMS_ITS | Continuity of Care Document ---
Author Organization [facility] Address [address] [place] [address] Phone [phone] Care Team Providers Care Excel Analyst Name Role Phone Maicol Mayorga Care Team Information Muskrat Trapper + [phone] Problems Active Problems Provider Date H/O: gout Cole Waddell M.D. Onset: Hyperlipidemia Cole Waddell M.D. Onset: Type 2 diabetes mellitus Cole Waddell M.D. O nset: 07/20/2022 Family history of Hodgkin's disease Cole ybarra M.D. Onset: 07/20/2022 Difficulty sleeping Cole Waddell M.D. Onset: 07/20/2022 Osteoarthritis Cole Waddell M.D. Onset: Social History Type Date Description Comments Sex Male Sex Unknown Tobacco Use Start: Unknown Never Smoked Cigarettes ETOH Use Occasionally consumes wine Allergies and adverse reactions Active Allergies Criticality Reaction Severity Comments Date Cefazolin Unable to assess criticality 07/20/2022 Latex Unable to assess criticality 07/20/2022 Neostigmine Unable to assess criticality 07/20/2022 Medications Active Medications SIG Qnty Indications Ordering Provider Date Zolpidem Tzkphcwh44qi Tablets Take 1 Tablet By Mouth AT Bedtime as Needed For Insomnia Maicol Mayorga Xmuezeeeqg9ld Tablets Take 1 Tablet By Mouth Three Times A Day as Needed For Anxiety Maicol Mayorga Hydroxyzine RFW09pj Tablets Take 1 Tablet By Mouth Three Times Daily as Needed For Itching Unknown Metformin BET549ot Tablets 1 by mouth every day pm Maicol Mayorga Xjzzaqxpjmt928we Tablets Take 1 Tablet By Mouth Daily Maicol Mayorga Hcjnglqrrje95vm Tablets Take 1 Tablet By Mouth Every [...] Referral Status Appt Cole Gonzalez M.D. Created [address] [place] [address] Drive [address] [place] [address] [phone]
[2025-07-02 10:28] LABS: Appearance Urine Clear; Glucose Urine UA Negative (Negative); PH 5.5 (5.0-9.0); Specific Gravity - Urine 1.020 (1.005-1.025)
[2025-07-02 10:41] LABS: Microalbum/Creatinine Ratio Ur 15.7 ug/mg cr (<30)
[2025-07-02 10:54] LABS: MANUAL DIFF FLAG NO
[2025-07-02 11:01] LABS: Hematocrit 45.0 % (42.0-52.0); Hemoglobin 15.2 g/dl (14.0-18.0); Imm Gran Abs Auto 0.01 X10*3/uL (0.00-0.03); Imm Gran Pct Auto 0.2 % (0.0-0.4); Lymphocytes Absolute Auto 1.7 X10*3/uL (1.2-4.9); Mean Corpuscular HGB Conc 33.8 g/dl (31.0-36.0); Mean Corpuscular Hemoglobin 31.4 pg (27.0-33.0); Mean Corpuscular Volume 93.0 fL (80.0-98.0); NRBC Abs Auto 0.000 X10*3/uL (0.0-0.012); NRBC Pct Auto 0.0 /100WBC (0.0-0.2); Platelet Count 190 X10*3/uL (160-400); Red Blood Count 4.84 X10*6/uL (4.60-5.80); White Blood Count 5.7 X10*3/uL (4.8-10.8)
[2025-07-02 11:20] LABS: Alanine Aminotransferase 33 U/L (0-40); Albumin Level 4.8 g/dL (3.5-5.0); Alkaline Phosphatase 59 U/L (39-117); Anion Gap 10 (12-20); Aspartate Amino Transferase 25 U/L (5-37); Blood Urea Nitrogen 12 mg/dL (9-16); Calcium 9.5 mg/dL (8.4-10.2); Carbon Dioxide 28 mmol/L (22-29); Chloride 107 mmol/L (96-108); Cholesterol 185 mg/dL (<200); Estimated Glomerular Filt Rate > 60; HDL Cholesterol 49 mg/dL (>40); Potassium 4.7 mmol/L (3.3-5.1); Sodium 140 mmol/L (135-145); Total Protein 7.5 g/dL (6.5-8.0); Triglycerides 103 mg/dL (<150); Uric Acid 4.6 mg/dL (3.4-7.0)
[2025-07-02 11:39] LABS: Folate 10.5 ng/mL (> or = 4.0); Vitamin B12 566 pg/mL (200-900)
== END 2025-07-02 08:56 | disposition home or self-care (01) ==
LOC: HO.10HDL 08:55
PROVIDERS: Visit Provider Internal Medicine
DX: Z00.00 Encounter for general adult medical examination without abnormal findings (principal); Z12.5 Encounter for screening for malignant neoplasm of prostate; M10.9 Gout, unspecified; E11.9 Type 2 diabetes mellitus without complications; D64.9 Anemia, unspecified; R30.0 Dysuria; E78.00 Pure hypercholesterolemia, unspecified; E55.9 Vitamin D deficiency, unspecified; E53.8 Deficiency of other specified B group vitamins
CPT/HCPCS: 36415; 80053; 80061; 81003; 82043; 82306; 82570; 82607; 82746; 83036; 84153; 84443; 84550; 85025

== ENCOUNTER 2025-07-03 13:47 | Outpatient (AMB) | payer MEDICARE, SELFPAY ==
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
[2025-07-03 14:05] VITALS: BP 140/76; PULSE 68; TEMP 36.4; O2SAT 96; BMI 27.2
[2025-07-03 14:52] VITALS: BP 120/70
--- OUTSIDE RECORDS SUMMARY | 2025-07-03 16:59 | XMS_ITS | Continuity of Care Document ---
Author Organization [facility] Address [address] [place] [address] Phone [phone] Care Team Providers Care Electrical Engineering Teacher Name Role Phone Maicol Mayorga Care Team Information Tools Programmer [phone] Problems Active Problems Provider Date H/O: gout [...] SIG Qnty Indications Ordering Provider Date Zolpidem [id number] Tablets Take 1 Tablet By Mouth AT Bedtime as Needed For Insomnia Maicol Mayorga [id number] Tablets Take 1 Tablet By Mouth Three Times A Day as Needed For Anxiety Maicol Mayorga Hydroxyzine [id number] Tablets Take 1 Tablet By Mouth Three Times Daily as Needed For Itching Unknown Metformin [id number] Tablets 1 by mouth every day pm Maicol Mayorga [id number] Tablets Take 1 Tablet By Mouth Daily Maicol Mayorga [id number] Tablets Take 1 Tablet By Mouth Every [...] Referral Status Appt Cole Gonzalez M.D. Created [address] [place] [address] [address] [place] [address] [phone]
== END 2025-07-03 15:08 | disposition home or self-care (01) ==
LOC: HO.HMCH 13:48
PROVIDERS: PCP Internal Medicine; Visit Provider Internal Medicine
DX: Z00.00 Encounter for general adult medical examination without abnormal findings (principal); E11.9 Type 2 diabetes mellitus without complications; E66.3 Overweight; Z68.27 Body mass index [BMI] 27.0-27.9, adult; E78.2 Mixed hyperlipidemia; M10.00 Idiopathic gout, unspecified site; K21.9 Gastro-esophageal reflux disease without esophagitis; G47.00 Insomnia, unspecified; F41.9 Anxiety disorder, unspecified

== ENCOUNTER → 2025-07-03 13:47 | Outpatient (BNVA) | payer MEDICARE, SELFPAY | PROVIDERS: PCP Internal Medicine; Visit Provider Internal Medicine | DX: Z00.00 Encounter for general adult medical examination without abnormal findings (principal); F41.9 Anxiety disorder, unspecified; E11.9 Type 2 diabetes mellitus without complications; E78.2 Mixed hyperlipidemia; M10.00 Idiopathic gout, unspecified site; K21.9 Gastro-esophageal reflux disease without esophagitis; G47.00 Insomnia, unspecified; D64.9 Anemia, unspecified; E78.00 Pure hypercholesterolemia, unspecified; M10.9 Gout, unspecified; E55.9 Vitamin D deficiency, unspecified; E53.8 Deficiency of other specified B group vitamins; R30.0 Dysuria; E66.3 Overweight; Z68.27 Body mass index [BMI] 27.0-27.9, adult | CPT/HCPCS: 96127; 99212 ==